=== PATIENT | female | born 1965 | race Caucasian/White ===

== ENCOUNTER 2021-04-15 08:19 | Day surgery (SDC) | payer OTHER ==
[~2021-04-15] VITALS: Ht 149.9 cm; Wt 59.0 kg
[2021-04-15 09:38] LABS: BASOPHILS % (AUTO) 0.6 % (0.0-2.0); EOSINOPHILS # (AUTO) 0.2 K/uL (0-0.4); EOSINOPHILS % (AUTO) 2.4 % (0.0-4.0); HEMATOCRIT 34.6 % (36-48); HEMOGLOBIN 11.5 g/dL (12.0-16.0); LYMPHOCYTES # (AUTO) 2.8 K/uL (2.5-16.5); LYMPHOCYTES % (AUTO) 35.1 % (20.5-51.1); MEAN CORPUSCULAR HEMOGLOBIN 30 pg (27-31); MEAN CORPUSCULAR HGB CONC 33 g/dL (33-37); MEAN CORPUSCULAR VOLUME 89.8 fL (80-94); MONOCYTES # (AUTO) 0.8 K/uL (0.8-1.0); MONOCYTES % (AUTO) 9.6 % (1.7-9.3); NEUTROPHILS # (AUTO) 4.1 K/uL (1.8-7.7); NEUTROPHILS % (AUTO) 52.3 % (42.2-75.2); PLATELET COUNT (AUTO) 334 K/uL (140-450); RED BLOOD CELL COUNT(AUTO) 3.85 MIL/uL (4.20-5.40); RED CELL DISTRIBUTION WIDTH 13.8 % (11.6-13.7); WHITE BLOOD COUNT (AUTO) 7.9 K/uL (4.8-10.8)
[2021-04-15 09:50] LABS: PROTHROMBIN TIME 9.9 secs (10.8-13.4)
[2021-04-15] MEDS ORDERED: LIDOCAINE 1% 500 MG/50 ML VIAL ONE (10:43)
[2021-04-15] MEDS ORDERED: fentaNYL citrate 0.05 MG/ML VIAL ONE (11:03)
[2021-04-15] MEDS ORDERED: fentaNYL citrate 0.05 MG/ML VIAL IVP ONE (11:10)
== END 2021-04-15 12:27 | disposition home or self-care (01) ==
LOC: MDS 08:19 → MFCC 08:24 → MDS 12:27
PROVIDERS: ATTEND Internal Medicine Gastroenterology
DX: R94.5 Abnormal results of liver function studies (principal); K76.0 Fatty (change of) liver, not elsewhere classified; K59.00 Constipation, unspecified; R10.84 Generalized abdominal pain; Z79.01 Long term (current) use of anticoagulants; Z90.49 Acquired absence of other specified parts of digestive tract; Z79.899 Other long term (current) drug therapy
CPT/HCPCS: 36415; 47000; 76942; 85025; 85610; 85730; J2001; J3010; Q0092; 88307; 88313

== ENCOUNTER 2021-04-29 10:12 | Day surgery (SDC) | payer OTHER, SELFPAY ==
[~2021-04-29] VITALS: Ht 149.9 cm; Wt 59.0 kg
[2021-04-29] MEDS: LIDOCAINE 2% 100 MG/5 ML UJET TP ONE ×2 (13:55→15:20)
[2021-04-29] MEDS ORDERED: fentaNYL citrate 0.05 MG/ML VIAL IVP ONE ×2 (14:05→15:45)
[2021-04-29] MEDS ORDERED: fentaNYL citrate 0.05 MG/ML VIAL ONE (15:07)
[2021-04-29] MEDS ORDERED: LIDOCAINE 2% 100 MG/5 ML UJET TP ONE (15:07)
== END 2021-04-29 16:10 | disposition home or self-care (01) ==
LOC: MDS 10:12 → MMU 10:13 → MDS 16:10
PROVIDERS: ATTEND Internal Medicine Gastroenterology
DX: Z12.11 Encounter for screening for malignant neoplasm of colon (principal); K57.30 Diverticulosis of large intestine without perforation or abscess without bleeding; K59.00 Constipation, unspecified; R19.5 Other fecal abnormalities; Z90.49 Acquired absence of other specified parts of digestive tract; Z87.891 Personal history of nicotine dependence; Z20.822 Contact with and (suspected) exposure to COVID-19
CPT/HCPCS: 45378; J3010; U0003